=== PATIENT | male | born 1945 | race Caucasian/White ===

== ENCOUNTER → 2016-09-30 | Outpatient (CLI) | payer OTHER | LOC: CARDREHAB 07:50 | DX: R07.9 Chest pain, unspecified (principal); I10 Essential (primary) hypertension; I45.10 Unspecified right bundle-branch block ==

== ENCOUNTER → 2016-10-21 | Outpatient (CLI) | payer OTHER | LOC: CARDREHAB 09-29 11:26 | DX: R07.9 Chest pain, unspecified (principal) ==